=== PATIENT | female | born 1995 | race Caucasian/White ===

== ENCOUNTER 2024-04-11 17:15 | Emergency (ER) | payer BC ==
[~2024-04-11] VITALS: Ht 170.2 cm; Wt 58.2 kg
[2024-04-11 17:22] VITALS: BP 120/92
[2024-04-11] MEDS ORDERED: NS 1,000 ML IV ONE (17:45)
[2024-04-11 17:55] LABS: HEMATOCRIT 48.5 % (37.0-47.0); HEMOGLOBIN 15.9 g/dL (12.5-16.0); MEAN CELL VOLUME 92 fl (78-100); MEAN CORPUSCULAR HEMOGLOBIN 30 pg (27-31); MEAN CORPUSCULAR HGB CONC 33 g/dL (33-37); MEAN PLATELET VOLUME 9.9 fl (7.4-10.4); PLATELET COUNT 296 K/mm3 (130-400); RED BLOOD COUNT 5.27 M/mm3 (4.10-5.30); RED CELL DISTRIBUTION WIDTH 13.5 % (11.5-14.5)
[2024-04-11 17:59] LABS: WHITE BLOOD COUNT 28.4 K/mm3 (4.8-10.8)
[2024-04-11 18:04] LABS: TOTAL BILIRUBIN 0.7 mg/dL (0.2-1.2)
[2024-04-11 18:19] LABS: BAND 2 % (0-10); LYMPHOCYTE 13 % (20-51); MONOCYTE 3 % (3-10); NEUTROPHILS 81 % (42-75)
[2024-04-11 18:22] LABS: TOXIC GRANULATION PRESENT
[2024-04-11] MEDS ORDERED: Iohexol 300 - 100 ML VIAL IV ONE (18:26)
[2024-04-11 18:58] LABS: URINE APPEARANCE SLIGHTLY CLOUDY (CLEAR); URINE COLOR DARK YELLOW (YELLOW)
[2024-04-11 18:59] LABS: URINE BILIRUBIN NEGATIVE (NEGATIVE); URINE BLOOD NEGATIVE (NEGATIVE); URINE GLUCOSE NEGATIVE (NEGATIVE); URINE KETONE TRACE (NEGATIVE); URINE LEUKOCYTE ESTERASE NEGATIVE (NEGATIVE); URINE NITRATE NEGATIVE (NEGATIVE); URINE PROTEIN(semi-quant) 1+ (NEGATIVE)
[2024-04-11 19:00] LABS: URINE MUCUS PRESENT (NOT PRESENT)
== END 2024-04-11 20:12 | disposition home or self-care (01) ==
LOC: ED 17:15
PROVIDERS: Family Medicine
DX: R11.2 Nausea with vomiting, unspecified (principal); D72.829 Elevated white blood cell count, unspecified
CPT/HCPCS: J7030; Q9967